=== PATIENT | female | born 1960 | race Two or more races ===

== ENCOUNTER 2024-05-08 09:59 | Emergency (ER) | payer OTHER ==
[~2024-05-08] VITALS: Ht 160 cm; Wt 83.9 kg
[2024-05-08] MEDS ORDERED: KETOROLAC TROMETHAMINE 60 MG VIAL IM ONE ×2 (11:36→11:45)
[2024-05-08] MEDS ORDERED: 8 HOUR650 MG PO (13:05)
== END 2024-05-08 13:20 | disposition home or self-care (01) ==
LOC: ER 10:02
DX: S92.515A Nondisplaced fracture of proximal phalanx of left lesser toe(s), initial encounter for closed fracture (principal); W18.39XA Other fall on same level, initial encounter; Y93.89 Activity, other specified; Y92.821 Forest as the place of occurrence of the external cause; Y99.9 Unspecified external cause status; Z88.8 Allergy status to other drugs, medicaments and biological substances